=== PATIENT | female | born 1995 | race Two or more races ===

== ENCOUNTER 2017-10-03 19:51 | Emergency (ER) | payer OTHER ==
[~2017-10-03] VITALS: Ht 170.2 cm; Wt 99.8 kg
--- NOTE | 2017-10-03 21:30 | NUR ---
PT AMBULATORY TO ER BED 8. PT BIB SELF C/O N-V-D X 2 DAYS. NO ACTIVE VOMITING NOTED. 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 VSS/RESP EVEN UNLABORED/NAD NOTED/SKIN WARM AND DRY/AOX4. AWAITING MD MANSFIELD.
[2017-10-03] MEDS ORDERED: ONDANSETRON 4 MG TAB.RAPDIS ONE (22:26)
[2017-10-03] MEDS: ONDANSETRON 4 MG TAB.RAPDIS SL ONE (22:30)
--- NOTE | 2017-10-03 22:31 | NUR ---
URINE SPECIMEN OBTAINED AND SENT TO THE LAB.
[2017-10-03 22:51] LABS: APPEARANCE,URINE CLEAR (CLEAR); BILIRUBIN,URINE NEGATIVE (NEGATIVE); BLOOD, URINE TRACE Ery/uL (NEGATIVE); COLOR,URINE YELLOW (YELLOW); KETONES,URINE NEGATIVE (NEGATIVE); LEUKOCYTE ESTERASE ,URINE NEGATIVE (NEGATIVE); NITRITE, URINE NEGATIVE (NEGATIVE); PROTEIN,URINE NEGATIVE (NEGATIVE); UGLUCOSE NEGATIVE (NEGATIVE); UROBILINOGEN,URINE 0.2 EU/dL (0.2)
[2017-10-03 23:03] LABS: BACTERIA,URINE None seen /HPF (None Seen); RBC,URINE 0-2 /HPF (0-2); SQUAMOUS EPITHELIAL CELL,UR Moderate /HPF (None Seen); WBC,URINE 0-2 /HPF (0-3)
--- NOTE | 2017-10-03 23:21 | NUR ---
Patient discharged to home in stable condition. Written and verbal after care instructions given. Patient verbalizes understanding of instruction. Patient ambulatory with a steady gait.
[2017-10-03 23:22] VITALS: BP 147/88
== END 2017-10-03 23:23 | disposition home or self-care (01) ==
LOC: ER 19:51
DX: A08.4 Viral intestinal infection, unspecified (principal); F17.200 Nicotine dependence, unspecified, uncomplicated
CPT/HCPCS: 81000-TC; 84703-TC; A4606; Q0162; Z7610

== ENCOUNTER 2019-03-09 10:15 | Emergency (ER) | payer OTHER ==
[~2019-03-09] VITALS: Ht 167.6 cm; Wt 104.3 kg
[2019-03-09 10:22] VITALS: BP 132/76
== END 2019-03-09 10:50 | disposition home or self-care (01) ==
LOC: ER 10:34
DX: H60.92 Unspecified otitis externa, left ear (principal); H66.92 Otitis media, unspecified, left ear; F10.10 Alcohol abuse, uncomplicated; F17.200 Nicotine dependence, unspecified, uncomplicated; Y90.9 Presence of alcohol in blood, level not specified

== ENCOUNTER 2019-03-13 10:42 | Emergency (ER) | payer OTHER ==
[~2019-03-13] VITALS: Ht 165.1 cm; Wt 104.3 kg
[2019-03-13 10:49] VITALS: BP 124/74
== END 2019-03-13 11:35 | disposition home or self-care (01) ==
LOC: ER 10:44
DX: H60.92 Unspecified otitis externa, left ear (principal); H93.12 Tinnitus, left ear; F31.9 Bipolar disorder, unspecified; F12.90 Cannabis use, unspecified, uncomplicated
CPT/HCPCS: Z7502

== ENCOUNTER 2020-03-19 20:59 | Emergency (ER) | payer OTHER ==
[~2020-03-19] VITALS: Ht 162.6 cm; Wt 99.8 kg
[2020-03-19 21:46] VITALS: BP 128/82
[2020-03-19] MEDS ORDERED: KETOROLAC TROMETHAMINE INJ 60 MG/2 ML VIAL IM ONE (22:30)
--- NOTE | 2020-03-19 22:32 | NUR ---
URINE SENT TO LAB
[2020-03-19] MEDS ORDERED: KETOROLAC TROMETHAMINE INJ 30 MG/ML VIAL ONE (23:05)
== END 2020-03-19 23:14 | disposition home or self-care (01) ==
LOC: ER 21:02
DX: J32.9 Chronic sinusitis, unspecified (principal); R51 Headache; Z60.2 Problems related to living alone
CPT/HCPCS: 84703; 96372; 99283; J1885

== ENCOUNTER 2021-01-14 23:03 | Emergency (ER) | payer OTHER ==
[~2021-01-14] VITALS: Ht 167.6 cm; Wt 99.8 kg
[2021-01-14] MEDS ORDERED: KETOROLAC TROMETHAMINE INJ 60 MG/2 ML VIAL IM ONE ×2 (23:30→23:46)
--- NOTE | 2021-01-14 23:45 | NUR ---
PT UNABLE TO PROVIDE URINE SAMPLE AT THIS TIME. AWARE. WAIVER SIGNED AND PLACED IN PATIENT CHART
--- NOTE | 2021-01-15 00:14 | NUR ---
BROUGHT BY RADIOLOGY TO CT
--- NOTE | 2021-01-15 00:21 | NUR ---
PT RETURNED FROM CT
[2021-01-15] MEDS ORDERED: METH4TAB3 PO (00:45)
[2021-01-15] MEDS ORDERED: TRAM50TA2 PO (00:45)
[2021-01-15 00:57] VITALS: BP 135/85
--- NOTE | 2021-01-15 00:58 | NUR ---
Patient discharged to home in stable condition. Written and verbal after care instructions given. Patient verbalizes understanding of instruction.Ms Glover is ambulatory with a steady gait
== END 2021-01-15 00:59 | disposition home or self-care (01) ==
LOC: ER 23:03
DX: J32.9 Chronic sinusitis, unspecified (principal); R51.9 Headache, unspecified; F10.10 Alcohol abuse, uncomplicated; F17.200 Nicotine dependence, unspecified, uncomplicated; Y90.9 Presence of alcohol in blood, level not specified; Z60.2 Problems related to living alone; Z79.899 Other long term (current) drug therapy
CPT/HCPCS: 70450; 96372; 99284; J1885

== ENCOUNTER 2021-04-28 21:55 | Emergency (ER) | payer OTHER ==
[~2021-04-28] VITALS: Ht 167.6 cm; Wt 113.4 kg
[~2021-04-28 21:55] MED LIST: METH4TAB3 PO; TRAM50TA2 PO
[2021-04-28 23:00] VITALS: BP 131/85
[2021-04-28] MEDS ORDERED: PSEU60TA94 PO (23:10)
[2021-04-28] MEDS ORDERED: KETOROLAC TROMETHAMINE INJ 60 MG/2 ML VIAL IM ONE ×2 (23:14→23:30)
--- NOTE | 2021-04-28 23:23 | NUR ---
Patient discharged to home in stable condition. Written and verbal after care instructions given. Patient verbalizes understanding of instruction. Pt ambulatory with a steady gait
== END 2021-04-28 23:23 | disposition home or self-care (01) ==
LOC: ER 21:57
DX: J32.1 Chronic frontal sinusitis (principal); F17.200 Nicotine dependence, unspecified, uncomplicated; Z60.2 Problems related to living alone; Z79.899 Other long term (current) drug therapy
CPT/HCPCS: 96372; 99283; J1885

== ENCOUNTER 2021-09-25 19:42 | Emergency (ER) | payer OTHER ==
[~2021-09-25] VITALS: Ht 167.6 cm; Wt 104.3 kg
[~2021-09-25 19:42] MED LIST changes: +PSEU60TA94 PO
--- NOTE | 2021-09-25 19:56 | NUR ---
URINE COLLECTED AND SENT TO LAB
[2021-09-25 20:33] VITALS: BP 138/60
--- NOTE | 2021-09-25 20:33 | NUR ---
Patient discharged to home in stable condition. Written and verbal after care instructions given. Patient verbalizes understanding of instruction.
== END 2021-09-25 20:33 | disposition home or self-care (01) ==
LOC: ER 20:05
DX: O21.9 Vomiting of pregnancy, unspecified (principal); F17.200 Nicotine dependence, unspecified, uncomplicated; Z60.2 Problems related to living alone; Z79.899 Other long term (current) drug therapy; Z3A.01 Less than 8 weeks gestation of pregnancy

== ENCOUNTER 2022-02-10 10:15 | Emergency (ER) | payer OTHER ==
[~2022-02-10] VITALS: Ht 167.6 cm; Wt 113.4 kg
[2022-02-10 10:24] VITALS: BP 127/66
--- NOTE | 2022-02-10 10:24 | NUR ---
BIBS C/O ANAL PAIN, HEMORRHOID FLARE UP. VITALS ARE WITHIN NORMAL LIMITS. AWAITING MD MANSFIELD.
--- NOTE | 2022-02-10 10:25 | NUR ---
THE PATIENT BIBS FOR C/O ANAL PAIN,HEMORRHOID FLARE UP. WILL CONTINUE TO MONITOR THE PATIENT.
[2022-02-10] MEDS ORDERED: PHEN1SUP42 RC ×2 (10:31→10:49)
[2022-02-10] MEDS ORDERED: LIDOCAINE/PRILOCAINE (5GM) 5 GM TUBE TP ONE ×2 (10:35→11:00)
[2022-02-10] MEDS ORDERED: LIDOCAINE VISCOUS 2% UD 15 ML UDC MM ONE (11:00)
== END 2022-02-10 10:59 | disposition home or self-care (01) ==
LOC: ER 10:15
DX: K64.8 Other hemorrhoids (principal); F17.200 Nicotine dependence, unspecified, uncomplicated; Z60.2 Problems related to living alone; Z79.899 Other long term (current) drug therapy

== ENCOUNTER 2022-03-03 14:12 | Emergency (ER) | payer MEDICAID, OTHER ==
[~2022-03-03] VITALS: Ht 167.6 cm; Wt 113.4 kg
[~2022-03-03 14:12] MED LIST changes: +PHEN1SUP42 RC
--- NOTE | 2022-03-03 14:40 | NUR ---
[place], vomiting, headache, with sore throat since Wednesday + , 28 weeks, G=1, P=0. AMBULATORY, PLACED ON BED, AAOX4, IN PAIN 06/22.
[2022-03-03] MEDS ORDERED: ONDANSETRON HCL/PF - ER 4 MG/2 ML VIAL IM ONE (15:00)
[2022-03-03] MEDS ORDERED: ONDANSETRON HCL/PF 4 MG/2 ML VIAL ONE ×2 (15:12→15:23)
[2022-03-03] MEDS ORDERED: ACETAMINOPHEN ES 500 MG TABLET ONE ×2 (15:12→15:23)
[2022-03-03] MEDS ORDERED: ACETAMINOPHEN ES 500 MG TABLET PO ONE (15:30)
[2022-03-03 15:39] LABS: BILIRUBIN,URINE NEGATIVE (NEGATIVE); COLOR,URINE YELLOW (YELLOW); LEUKOCYTE ESTERASE ,URINE NEGATIVE (NEGATIVE); NITRITE, URINE NEGATIVE (NEGATIVE); PROTEIN,URINE NEGATIVE (NEGATIVE); UGLUCOSE NEGATIVE (NEGATIVE); UROBILINOGEN,URINE 0.2 EU/dL (0.2)
[2022-03-03] MEDS ORDERED: IV NS 0.9% 1,000 ML IV ONE (16:00)
--- NOTE | 2022-03-03 16:01 | NUR ---
IVF given as ordered by Dr. Espinoza
--- NOTE | 2022-03-03 16:14 | NUR ---
SWAB FOR COVID19 AND RAPID INFLUENZA ANTIGEN SENT TO LAB
[2022-03-03] MEDS ORDERED: OSEL75CA PO (17:01)
--- NOTE | 2022-03-03 17:13 | NUR ---
IV removed. Catheter intact and site benign. Pressure and 4x4 applied to site. No bleeding noted.Patient discharged to home in stable condition. Written and verbal after care instructions given. Patient verbalizes understanding of instruction.
[2022-03-03 17:14] VITALS: BP 123/78
[2022-03-03] MEDS ORDERED: OSELTAMIVIR PHOSPHATE 75 MG CAPSULE ONE (17:25)
--- NOTE | 2022-03-03 17:27 | NUR ---
PO Tamiflu 75 mg PO x 1
--- NOTE | 2022-03-03 17:27 | NUR ---
Patient discharged to home in stable condition. Written and verbal after care instructions given. Patient verbalizes understanding of instruction.
[2022-03-03] MEDS ORDERED: OSELTAMIVIR PHOSPHATE 75 MG CAPSULE PO ONE (17:30)
== END 2022-03-03 17:14 | disposition home or self-care (01) ==
LOC: ER 14:18
DX: O98.513 Other viral diseases complicating pregnancy, third trimester (principal); J10.1 Influenza due to other identified influenza virus with other respiratory manifestations; Z3A.28 28 weeks gestation of pregnancy; Z20.822 Contact with and (suspected) exposure to COVID-19
CPT/HCPCS: 81003; 84703; 87426; 87804; 96360; 96372; 99284; C9803; J2405; J7030

== ENCOUNTER 2022-10-28 18:09 | Emergency (ER) | payer MEDICAID ==
[~2022-10-28] VITALS: Ht 165.1 cm; Wt 113.4 kg
[~2022-10-28 18:09] MED LIST changes: +OSEL75CA PO
[2022-10-28 18:27] VITALS: BP 125/81
--- NOTE | 2022-10-28 19:06 | NUR ---
SWAB SPECIMENS OBTAINED AND SENT TO LAB
[2022-10-28] MEDS ORDERED: KETOROLAC TROMETHAMINE INJ 60 MG/2 ML VIAL IM ONE (19:30)
[2022-10-28] MEDS ORDERED: KETOROLAC TROMETHAMINE INJ 30 MG/ML VIAL ONE (19:35)
[2022-10-28] MEDS ORDERED: IBUP-1955 PO (22:04)
[2022-10-28] MEDS ORDERED: PRED20TA PO (22:04)
--- NOTE | 2022-10-28 22:30 | NUR ---
pt ok to discharge per cassia baker bench. Patient discharged to home in stable condition. Written and verbal after care instructions given. Patient verbalizes understanding of instruction.Patient is awake and alert to self, day, and place. pt ambulatory with a steady gait
== END 2022-10-28 22:30 | disposition home or self-care (01) ==
LOC: ER 18:14
DX: J02.8 Acute pharyngitis due to other specified organisms (principal); B97.89 Other viral agents as the cause of diseases classified elsewhere; R05.9 Cough, unspecified; Z20.822 Contact with and (suspected) exposure to COVID-19
CPT/HCPCS: 99283; 87426; 96372; 87804 ×2; 87880; J1885; C9803; 86403-TC

== ENCOUNTER 2022-11-24 17:13 | Emergency (ER) | payer MEDICAID ==
[~2022-11-24] VITALS: Ht 167.6 cm; Wt 113.4 kg
[~2022-11-24 17:13] MED LIST changes: +IBUP-1955 PO; +PRED20TA PO
--- NOTE | 2022-11-24 17:32 | NUR ---
Right-sided jaw pain, which radiates to the right side of the face and to the temporal region x2 days. No neuro symptoms No focal deficit She took Tylenol 500 mg p.o. before going to the emergency department, pain now is down to 4/10 in severity
--- NOTE | 2022-11-24 17:33 | NUR ---
Placed to ER bed 9, awaiting for ER physician to see
[2022-11-24] MEDS ORDERED: KETOROLAC TROMETHAMINE INJ 30 MG/ML VIAL ONE (17:55)
[2022-11-24] MEDS ORDERED: KETOROLAC TROMETHAMINE INJ 30 MG/ML VIAL IM ONE (18:00)
[2022-11-24] MEDS ORDERED: IBUPROFEN 600 MG TABLET PO ONE (18:00)
[2022-11-24] MEDS ORDERED: IBUP-1953 PO (19:43)
[2022-11-24] MEDS ORDERED: AMOX-430 PO (19:43)
[2022-11-24 20:09] VITALS: BP 132/88
--- NOTE | 2022-11-24 20:09 | NUR ---
Patient discharged to home in stable condition. Written and verbal after care instructions given. Patient verbalizes understanding of instruction.
== END 2022-11-24 20:10 | disposition home or self-care (01) ==
LOC: ER 17:19
DX: R59.1 Generalized enlarged lymph nodes (principal); R68.84 Jaw pain; F17.200 Nicotine dependence, unspecified, uncomplicated; Z60.2 Problems related to living alone; Z79.899 Other long term (current) drug therapy
CPT/HCPCS: 99285; 70486; 96372; J1885

== ENCOUNTER 2022-12-10 18:19 | Emergency (ER) | payer MEDICAID ==
[~2022-12-10] VITALS: Ht 167.6 cm; Wt 113.4 kg
[~2022-12-10 18:19] MED LIST changes: +AMOX-430 PO; +IBUP-1953 PO
--- NOTE | 2022-12-10 18:45 | NUR ---
C/O OF SORE THROAT SINCE 6 AM TODAY ALONG CHEST TIGHTNESS AND ABDOMINAL CRAMPS. PT STATES "I HAVE A DENTAL INFECTION AND IT MIGHT BE GOING INTO MY THROAT, CHEST AND STOMACH". PT AMBULATED TO BED WITH STEADY GAIT. VSS. AWAITING MD ORDERS.
--- NOTE | 2022-12-10 18:57 | NUR ---
XRAY AT BEDSIDE.
[2022-12-10] MEDS ORDERED: KETOROLAC TROMETHAMINE INJ 60 MG/2 ML VIAL IM ONE (19:30)
[2022-12-10] MEDS ORDERED: KETOROLAC TROMETHAMINE INJ 30 MG/ML VIAL ONE (19:32)
[2022-12-10 19:46] VITALS: BP 135/77
--- NOTE | 2022-12-10 19:50 | NUR ---
Patient discharged to home in stable condition. Written and verbal after care instructions given. Patient verbalizes understanding of instruction.
== END 2022-12-10 19:49 | disposition home or self-care (01) ==
LOC: ER 18:29
DX: R05.9 Cough, unspecified (principal); F17.200 Nicotine dependence, unspecified, uncomplicated; Z60.2 Problems related to living alone; Z79.899 Other long term (current) drug therapy
CPT/HCPCS: 99283; 71045; 96372; 93005 ×2; J1885

== ENCOUNTER 2023-01-08 16:40 | Emergency (ER) | payer MEDICAID ==
[~2023-01-08] VITALS: Ht 165.1 cm; Wt 114.3 kg
--- NOTE | 2023-01-08 18:45 | NUR ---
RECEVED PT 27 YRS MALE FROM HOME WALKING IN C/O PAIN IN [place] AREA FOR 6 DAYS
--- NOTE | 2023-01-08 19:00 | NUR ---
SEEN BY DR DEVRIES
[2023-01-08] MEDS ORDERED: CLOT21CR6 VG (19:34)
--- NOTE | 2023-01-08 19:37 | NUR ---
HAND OFF POUL RN
[2023-01-08 20:20] VITALS: BP 110/55
== END 2023-01-08 20:21 | disposition home or self-care (01) ==
LOC: ER 16:50
DX: B37.31 Acute candidiasis of vulva and vagina (principal); F17.200 Nicotine dependence, unspecified, uncomplicated; Z79.899 Other long term (current) drug therapy; Z60.2 Problems related to living alone
CPT/HCPCS: 82962-TC

== ENCOUNTER 2023-01-19 11:39 | Emergency (ER) | payer MEDICAID ==
[~2023-01-19] VITALS: Ht 167.6 cm; Wt 117.0 kg
[~2023-01-19 11:39] MED LIST changes: +CLOT21CR6 VG
--- NOTE | 2023-01-19 12:15 | NUR ---
Received pt 27 yrs female came from home c/o headache since this morning at 7am no weekess no nubmeness in extramity
--- NOTE | 2023-01-19 12:25 | NUR ---
SEEN by DR. ROBLES
[2023-01-19] MEDS ORDERED: IV NS 0.9% 1,000 ML IV ONE (12:30)
[2023-01-19] MEDS ORDERED: KETOROLAC TROMETHAMINE INJ 30 MG/ML VIAL IV ONE (12:30)
[2023-01-19] MEDS ORDERED: diphenhydrAMINE HCL 50 MG/ML VIAL IV ONE (12:30)
[2023-01-19] MEDS ORDERED: METOCLOPRAMIDE HCL 10 MG/2 ML VIAL IV ONE (12:30)
--- NOTE | 2023-01-19 12:30 | NUR ---
INSERTED ANGOCATHETER G 20 ON LT FOR ARM IVF STRTED ORDER FALLOW WITH TRETMENT WAS GIVEN
[2023-01-19] MEDS ORDERED: KETOROLAC TROMETHAMINE 15 MG/ML VIAL ONE (12:51)
[2023-01-19] MEDS ORDERED: diphenhydrAMINE HCL 50 MG/ML VIAL ONE (12:51)
[2023-01-19] MEDS ORDERED: METOCLOPRAMIDE HCL 10 MG/2 ML VIAL ONE (12:52)
[2023-01-19] MEDS ORDERED: IBUP-1955 PO (13:23)
--- NOTE | 2023-01-19 13:35 | NUR ---
PT RESTING AND ASLEEPY NO SOB VS STABLE
--- NOTE | 2023-01-19 14:40 | NUR ---
IV removed. Catheter intact and site benign. Pressure and 4x4 applied to site. No bleeding noted.
--- NOTE | 2023-01-19 14:45 | NUR ---
Patient discharged to home in stable condition. Written and verbal after care instructions given. Patient verbalizes understanding of instruction.
[2023-01-19 15:15] VITALS: BP 120/74
== END 2023-01-19 15:15 | disposition home or self-care (01) ==
LOC: ER 11:42
DX: R51.9 Headache, unspecified (principal); F17.200 Nicotine dependence, unspecified, uncomplicated; Z60.2 Problems related to living alone; Z79.899 Other long term (current) drug therapy
CPT/HCPCS: 99285; 96374; 96375; 96361; J1200; J2765; J7030; J1885

== ENCOUNTER 2023-02-14 20:23 | Emergency (ER) | payer MEDICAID ==
[~2023-02-14] VITALS: Ht 165.1 cm; Wt 113.4 kg
--- NOTE | 2023-02-14 20:40 | NUR ---
SILVIANO FROM HOME C/O HEADACHE SINCE THIS MORNING. TOOK IBUPROFEN 600MG WITH NO RELIEF. PT A/OX4. TOLERATING R/A WELL WITH NO RESP DISTRESS. SAFETY MEASURES IN PLACE .
[2023-02-14] MEDS ORDERED: ACETAMINOPHEN ES 500 MG TABLET ONE (20:59)
[2023-02-14] MEDS ORDERED: ACETAMINOPHEN ES 500 MG TABLET PO ONE (21:00)
--- NOTE | 2023-02-14 21:03 | NUR ---
URINE COLLECTED AND SENT TO LAB
[2023-02-14] MEDS ORDERED: KETOROLAC TROMETHAMINE INJ 30 MG/ML VIAL ONE (21:54)
--- NOTE | 2023-02-14 21:55 | NUR ---
Patient discharged to home in stable condition. Written and verbal after care instructions given. Patient verbalizes understanding of instruction.
[2023-02-14] MEDS ORDERED: KETOROLAC TROMETHAMINE INJ 30 MG/ML VIAL IM ONE (22:00)
[2023-02-14 22:02] VITALS: BP 143/77
== END 2023-02-14 22:02 | disposition home or self-care (01) ==
LOC: ER 20:23
DX: R51.9 Headache, unspecified (principal); F17.200 Nicotine dependence, unspecified, uncomplicated; Z60.2 Problems related to living alone; Z79.899 Other long term (current) drug therapy
CPT/HCPCS: 99283; 96372; 84703; J1885

== ENCOUNTER 2023-02-15 18:58 | Emergency (ER) | payer MEDICAID ==
[~2023-02-15] VITALS: Ht 165.1 cm; Wt 113.4 kg
[2023-02-15] MEDS ORDERED: diphenhydrAMINE HCL 50 MG/ML VIAL IV ONE (21:30)
[2023-02-15] MEDS ORDERED: KETOROLAC TROMETHAMINE INJ 30 MG/ML VIAL IV ONE (21:30)
[2023-02-15] MEDS ORDERED: IV NS 0.9% 1,000 ML BAG IV ONE (21:30)
[2023-02-15] MEDS ORDERED: PROCHLORPERAZINE EDISYLATE 10 MG/2 ML VIAL IVP ONE (21:30)
[2023-02-15] MEDS ORDERED: diphenhydrAMINE HCL 50 MG/ML VIAL ONE (21:41)
[2023-02-15] MEDS ORDERED: KETOROLAC TROMETHAMINE 15 MG/ML VIAL ONE (21:42)
[2023-02-15] MEDS ORDERED: PROCHLORPERAZINE EDISYLATE 10 MG/2 ML VIAL ONE (21:42)
[2023-02-15 22:54] VITALS: BP 140/73
== END 2023-02-15 22:54 | disposition home or self-care (01) ==
LOC: ER 19:00
DX: G43.001 Migraine without aura, not intractable, with status migrainosus (principal); F17.200 Nicotine dependence, unspecified, uncomplicated; Z60.2 Problems related to living alone; Z79.899 Other long term (current) drug therapy
CPT/HCPCS: 99285; 96374; 70450; 96375; 96361; J0780; J1200; J7040; J1885

== ENCOUNTER 2023-05-13 15:14 | Emergency (ER) | payer MEDICAID ==
[~2023-05-13] VITALS: Ht 167.6 cm; Wt 113.4 kg
[2023-05-13 15:55] VITALS: BP 130/91; TEMP 98.2
[2023-05-13] MEDS ORDERED: KETOROLAC TROMETHAMINE INJ 30 MG/ML VIAL ONE (16:38)
[2023-05-13 16:49] VITALS: O2SAT 97
[2023-05-13] MEDS ORDERED: KETOROLAC TROMETHAMINE INJ 60 MG/2 ML VIAL IM ONE (17:00)
== END 2023-05-13 16:50 | disposition home or self-care (01) ==
LOC: ER 15:38
DX: R51.9 Headache, unspecified (principal); F17.200 Nicotine dependence, unspecified, uncomplicated; Z60.2 Problems related to living alone; Z79.899 Other long term (current) drug therapy
CPT/HCPCS: 99283; 96372; J1885

== ENCOUNTER 2023-07-15 22:30 | Emergency (ER) | payer MEDICAID ==
[~2023-07-15] VITALS: Ht 167.6 cm; Wt 113.4 kg
[2023-07-15] MEDS ORDERED: PSEU120T57 PO (22:53)
[2023-07-15] MEDS ORDERED: METOCLOPRAMIDE HCL 10 MG/2 ML VIAL IV ONE (23:00)
[2023-07-15] MEDS ORDERED: KETOROLAC TROMETHAMINE INJ 30 MG/ML VIAL IV ONE (23:00)
[2023-07-15] MEDS ORDERED: IV NS 0.9% 1,000 ML BAG IV ONE (23:00)
[2023-07-15] MEDS ORDERED: diphenhydrAMINE HCL 50 MG/ML VIAL IV ONE (23:00)
[2023-07-15] MEDS ORDERED: diphenhydrAMINE HCL 50 MG/ML VIAL ONE (23:27)
[2023-07-15] MEDS ORDERED: METOCLOPRAMIDE HCL 10 MG/2 ML VIAL ONE (23:27)
[2023-07-15] MEDS ORDERED: KETOROLAC TROMETHAMINE 15 MG/ML VIAL ONE (23:27)
[2023-07-16 00:48] VITALS: BP 113/75; TEMP 98; O2SAT 99
== END 2023-07-16 00:49 | disposition home or self-care (01) ==
LOC: ER 22:37
DX: R51.9 Headache, unspecified (principal); F17.200 Nicotine dependence, unspecified, uncomplicated; Z79.899 Other long term (current) drug therapy; Z60.2 Problems related to living alone
CPT/HCPCS: 99284; 96374; 96375; 96361; J1200; J2765; J1885

== ENCOUNTER 2024-06-29 16:41 | Emergency (ER) | payer MEDICAID ==
[~2024-06-29] VITALS: Ht 167.6 cm; Wt 113.4 kg
[~2024-06-29 16:41] MED LIST changes: +PSEU120T57 PO
[2024-06-29 16:51] VITALS: BP 125/77; TEMP 97.8; O2SAT 99
[2024-06-29] MEDS ORDERED: NAPR-1164 PO (17:02)
== END 2024-06-29 17:32 | disposition home or self-care (01) ==
LOC: ER 16:49
DX: M17.12 Unilateral primary osteoarthritis, left knee (principal); F17.200 Nicotine dependence, unspecified, uncomplicated; Z79.52 Long term (current) use of systemic steroids; Z60.2 Problems related to living alone

== ENCOUNTER 2025-06-01 16:29 | Emergency (ER) | payer MEDICAID, OTHER ==
[~2025-06-01] VITALS: Ht 170.2 cm; Wt 113.4 kg
[~2025-06-01 16:29] MED LIST changes: +NAPR-1164 PO
[2025-06-01 16:48] VITALS: BP 123/68; TEMP 97.9; O2SAT 99
[2025-06-01] MEDS ORDERED: IBUP-1953 PO (17:09)
[2025-06-01] MEDS ORDERED: [UNRECOGNIZED DRUG - CODE] TP (17:09)
== END 2025-06-01 17:20 | disposition home or self-care (01) ==
LOC: ER 16:34
DX: K12.0 Recurrent oral aphthae (principal); R05.9 Cough, unspecified; R09.81 Nasal congestion; F17.200 Nicotine dependence, unspecified, uncomplicated; Z79.52 Long term (current) use of systemic steroids; Z60.2 Problems related to living alone

== ENCOUNTER 2025-07-22 15:48 | Emergency (ER) | payer OTHER ==
[~2025-07-22] VITALS: Ht 167.6 cm; Wt 111.6 kg
[~2025-07-22 15:48] MED LIST changes: +[UNRECOGNIZED DRUG - CODE] TP
[2025-07-22 16:00] VITALS: BP 129/73; TEMP 98.2; O2SAT 100
[2025-07-22] MEDS ORDERED: FLUT16SP16 BNOSTRILS (16:13)
[2025-07-22] MEDS ORDERED: CETI-194 PO (16:13)
[2025-07-22] MEDS ORDERED: AZEL6DRO5 EACHEYE (16:13)
== END 2025-07-22 16:34 | disposition home or self-care (01) ==
LOC: ER 15:48
DX: J30.9 Allergic rhinitis, unspecified (principal); F17.200 Nicotine dependence, unspecified, uncomplicated; Z79.52 Long term (current) use of systemic steroids; Z20.822 Contact with and (suspected) exposure to COVID-19

== ENCOUNTER 2025-09-10 04:50 | Emergency (ER) | payer OTHER ==
[~2025-09-10] VITALS: Ht 167.6 cm; Wt 111.6 kg
[~2025-09-10 04:50] MED LIST changes: +AZEL6DRO5 EACHEYE; +CETI-194 PO; +FLUT16SP16 BNOSTRILS
[2025-09-10 05:59] VITALS: BP 134/70; TEMP 98.3
[2025-09-10 06:21] LABS: APPEARANCE,URINE CLEAR (CLEAR); BLOOD, URINE 1+ Ery/uL (NEGATIVE); LEUKOCYTE ESTERASE ,URINE 1+ (NEGATIVE); NITRITE, URINE NEGATIVE (NEGATIVE); UGLUCOSE NEGATIVE (NEGATIVE)
[2025-09-10 06:25] LABS: PREGNANCY TEST URINE QUAL NEGATIVE (NEGATIVE)
[2025-09-10 06:41] LABS: ADD URINE CULTURE YES; SQUAMOUS EPITHELIAL CELL,UR Rare /HPF (None Seen)
[2025-09-10] MEDS ORDERED: CEPH-570 PO (07:03)
[2025-09-10] MEDS ORDERED: IBUP-1490 PO (07:03)
[2025-09-10 07:16] VITALS: O2SAT 97
== END 2025-09-10 07:16 | disposition home or self-care (01) ==
LOC: ER 04:57
DX: N39.0 Urinary tract infection, site not specified (principal); R30.0 Dysuria; F17.200 Nicotine dependence, unspecified, uncomplicated; Z79.52 Long term (current) use of systemic steroids
CPT/HCPCS: 81001; 84703-TC; 87086-TC; 87186-TC